=== PATIENT | female | born 1975 | race Two or more races ===

== ENCOUNTER 2023-09-23 21:52 | Inpatient (IN) | payer OTHER ==
[~2023-09-23] VITALS: Ht 157.5 cm; Wt 64.9 kg
--- NOTE | 2023-09-23 22:10 | NUR ---
PACIENTE ALERTA Y ORIENTADA X 3. REFIERE DOLOR EN AREA PELVICA LADO DERECHO. LA MISMA TIENE REFERIDO PARA ADMISION DE LA PEPPER DONNIE CRUZ DE LAS 5:30 PM PARA OBGYN.
[2023-09-24] MEDS ORDERED: RINGERS SOLUTION,LACTATED 1,000 ML IV ONE (00:30)
--- NOTE | 2023-09-24 00:37 | NUR ---
SE EDUCA A PTE SOBRE TX MEDICO ESTA REFIERE ENTENDER, SE LYUDMILA MUESTRAS DE LABORATORIO UTILIZANDO MEDIDAS ASEPTICAS. SE COLOCA H/L FRIDA DE EDEMA. SE AFMI ADMINISTRAN MEDICAMENTOS LOS CUALES TOLERA PTE. SE NOTIFICA RX PENDIENTE A REALIZAR.
[2023-09-24] MEDS ORDERED: MORPHINE SULFATE 4 MG/ML CARTRIDGE IV PRN (00:45)
[2023-09-24] MEDS ORDERED: BISACODYL 5 MG TABLET.EC PO ONE (00:45)
[2023-09-24 00:49] LABS: HEMATOCRIT 38.9 % (36.0-45.00); MEAN CELL VOLUME 86.4 fL (80.00-100.00); MEAN CORPUSCULAR HEMOGLOBIN 28.8 pg (27.00-32.0); MEAN CORPUSCULAR HGB CONC 33.3 g/dl (32.0-36.0); PLATELET COUNT 350 K/uL (150-450); RED BLOOD COUNT 4.51 M/uL (4.00-6.00); RED CELL DISTRIBUTION WIDTH 14.5 % (11.5-14.5)
[2023-09-24 01:23] LABS: INR 0.95
[2023-09-24 02:01] LABS: PH,URINE 6.5 (5.0-8.0); URINE APPEARANCE Clear; URINE BILIRRUBIN Negative (NEGATIVE); URINE BLOOD Negative; URINE COLOR Yellow; URINE GLUCOSE Negative (NEGATIVE); URINE LEUKOCYTE Negative; URINE NITRATE Negative; URINE PROTEIN Negative (NEGATIVE)
[2023-09-24 02:05] LABS: URINE BACTERIA 108.2 uL (0.0-1933); URINE WBC 8.6 uL (0.0-23.2)
[2023-09-24 02:07] LABS: URINE RBC 1.5 uL (0.0-20.8)
[2023-09-24 02:18] LABS: ALBUMIN 3.7 gm/dL (3.4-5.0); ALKALINE PHOSPHATASE 103 U/L (50-136); ALT/SGPT 29 U/L (12-78); ANION GAP 9 (10.0-20.0); AST/SGOT 11 U/L (15-37); BILIRUBIN TOTAL 0.43 mg/dL (0.3-1.2); BLOOD UREA NITROGEN 13 mg/dL (7-18); BUN CREA RATIO 17 (7.0-25.0); CALCIUM 9.3 mg/dL (8.5-10.1); CARBON DIOXIDE 30 mEq/L (21-32); CHLORIDE 107 mmol/L (98-107); CREATININE SERUM 0.77 mg/dL (0.55-1.02); GLOBULINA 4.1 G/DL (2.4-3.5); GLUCOSE FASTING 92 mg/dL (65-100); OSMOLALITY SERUM 283 MOSM/KG (275-295); POTASSIUM 3.64 mEq/L (3.5-5.1); SODIUM 142 mmol/L (136-145); TOTAL PROTEIN 7.8 gm/dL (6.4-8.2)
[2023-09-24 02:35] LABS: HCG QUANTITATIVE < 1 mUI/mL (1-3)
[2023-09-24] MEDS ORDERED: CEFAZOLIN SODIUM 1,000 MG VIAL IV ONE (08:15)
[2023-09-24] MEDS ORDERED: POVIDONE IODINE VAG ONE (08:30)
[2023-09-24] MEDS ORDERED: POVIDONE-IODINE 118 ML BOTT TOP ONE ×2 (12:33→13:38)
[2023-09-24] MEDS ORDERED: CEFAZOLIN SODIUM 1,000 MG VIAL ONE (12:33)
[2023-09-24] MEDS ORDERED: BUPIVACAINE HCL/PF 0.5% 30ML ML ONE (12:36)
[2023-09-24 21:35] LABS: HEMOGLOBIN 12.2 g/dL (12.0-15.00); MEAN CELL VOLUME 86.1 fL (80.00-100.00); MEAN CORPUSCULAR HEMOGLOBIN 28.5 pg (27.00-32.0); PLATELET COUNT 330 K/uL (150-450); RED CELL DISTRIBUTION WIDTH 14.2 % (11.5-14.5)
[2023-09-25] MEDS ORDERED: ENOXAPARIN SODIUM 40 MG/0.4 ML SYRINGE SUBCUTANEO SCH (09:00)
[2023-09-25] MEDS ORDERED: TRAM1TAB98 PO (11:04)
== END 2023-09-25 14:19 | disposition home or self-care (01) | DRG 743 ==
LOC: ER 21:53 → OB/GYN 09-24 00:30
PROVIDERS: General Practice; ADMIT Obstetrics & Gynecology; ATTEND Obstetrics & Gynecology
PROC: 0UT58ZZ Resection of Right Fallopian Tube, Via Natural or Artificial Opening Endoscopic (ICD-10-PCS; principal; 2023-09-24 17:00)
DX: N70.11 Chronic salpingitis (principal); Z20.822 Contact with and (suspected) exposure to COVID-19